=== PATIENT | female | born 1950 | race Caucasian/White ===

== ENCOUNTER 2018-11-03 11:14 | Emergency (ER) | payer BC, MEDICARE ==
--- NOTE | 2018-11-03 12:23 | ULT ---
DOPPLER VENOUS ULTRASOUND OF THE RIGHT LOWER EXTREMITY: Date: 11/03/18 INDICATION: Six days of right leg pain and redness with edema. TECHNIQUE: Chanel scale, color Doppler, and vascular duplex with spectral analysis was performed of the deep venou s structures of the right lower extremity. The common femoral vein, superficial femoral vein, proxima l greater saphenous vein, proximal greater profunda vein, popliteal, and posterior tibial veins were assessed. FINDINGS: There is occlusive thrombus seen involving the right greater saphenous vein extending into the common femoral vein near the saphenofemoral junction. The occlusive thrombus extends down to the level of t he right knee. The deep venous structures demonstrate no intraluminal thrombus, normal flow, and comp ression. IMPRESSION: Evidence of venous thrombosis within the right greater saphenous vein with some thrombus extension in to the common femoral vein. POS: [facility]
== END 2018-11-03 12:49 | disposition home or self-care (01) ==
LOC: SCSER 11:14
DX: I82.411 Acute embolism and thrombosis of right femoral vein (principal); I82.811 Embolism and thrombosis of superficial veins of right lower extremity; K21.9 Gastro-esophageal reflux disease without esophagitis; J45.909 Unspecified asthma, uncomplicated